=== PATIENT | male | born 1970 | race Caucasian/White ===

== ENCOUNTER 2019-07-26 12:50 | Emergency (ER) | payer BC, OTHER ==
[~2019-07-26] VITALS: Ht 175.3 cm; Wt 70.3 kg
[2019-07-26 13:23] LABS: ABSOLUTE NEUTROPHILS 5.4 thou/uL (1.4-8.2); BASOPHILS 0.3 % (0.0-2.0); EOSINOPHILS 0.8 % (0.0-3.0); HEMATOCRIT 46.9 % (42.0-52.0); HEMOGLOBIN 15.8 gm/dL (14.0-18.0); LYMPHOCYTES 16.1 % (24.0-44.0); MCH 32.4 pg (26.0-34.0); MCHC 33.6 g/dL (28.0-37.0); MCV 96.2 fL (80.0-100.0); MONOCYTES 6.6 % (1.0-8.0); PLATELET COUNT 199 thou/uL (150-400); POLYS 76.2 % (36.0-66.0); RBC 4.88 mil/uL (4.50-6.00)
[2019-07-26 13:25] LABS: ANION GAP 2 mmol/L (7-16); BUN 15 mg/dL (7-18); CALCIUM 9.4 mg/dL (8.5-10.1); CHLORIDE 99 mmol/L (98-107); CO2 27 mmol/L (21-32); CREATININE 0.9 mg/dL (0.7-1.3); GLUCOSE 107 mg/dL (74-106); POTASSIUM 3.6 mmol/L (3.5-5.1); SODIUM 128 mmol/L (136-145)
[2019-07-26] MEDS ORDERED: SERTRALINE HCL100 MG PO (13:28)
[2019-07-26] MEDS ORDERED: ATENOLOL 25 MG25 M1 PO (13:29)
[2019-07-26 13:33] LABS: TROPONIN-I <0.06 ng/mL (<0.06)
[2019-07-26 16:37] VITALS: BP 110/74
--- NOTE | 2019-07-27 08:49 | EKG ---
[place] [address] [facility] [place] [address] ELECTROCARDIOGRAM REPORT Name: SYDNEYBHARATH BALJIT Room [facility]: [id number] Admission: 07/26/19 Attend Phys: Discharge: 07/26/19 Date of : 74 Report #: [id number] THIS REPORT FOR: //name// [facility] ED Test Date: 2019-07-26 Test Time: 12:54:48 Pat Name: BHARATH GRIMES Department: Room: Gender: M Development Vice President: [facility] : 1970 Requested By: Dorene Brown Order Number: [id number] MD: Murray Ignacio Measurements Intervals [place] Rate: 92 P: OR: QRS: 36 QRSD: 93 T: 67 QT: 335 QTc: 415 Interpretive Statements Atrial fibrillation Baseline wander in lead(s) V2 No previous ECG available for comparison Electronically Signed On 07-27-2019 8:49:11 LOGISTICS PROJECT MANAGER by Murray Ignacio [email or web address] <ELECTRONICALLY SIGNED> By: Murray Ignacio MD, [facility] 07/27/19 [id number] Murray Ignacio MD, FACC /EPI
== END 2019-07-26 16:39 | disposition home or self-care (01) ==
LOC: ER 12:50
PROVIDERS: Nurse Practitioner
DX: I48.91 Unspecified atrial fibrillation (principal)

== ENCOUNTER → 2019-09-10 | Outpatient (CLI) | payer BC, OTHER ==
[~2019-09-10] MED LIST: ATENOLOL 25 MG25 M1 PO; SERTRALINE HCL100 MG PO
== END ==
LOC: SJCVCIMAG 12:58
DX: I48.91 Unspecified atrial fibrillation (principal)